=== PATIENT | female | born 1995 | race American Indian/Alaskan Native ===

== ENCOUNTER 2018-06-30 10:42 | Emergency (ER) | payer MEDICAID ==
[2018-06-30 12:34] VITALS: BP 115/63
--- NOTE | 2018-06-30 13:51 | Emergency Department Report ---
Eye Injury/Foreign Body - HPI Duration: 2 Days Eye Location: Bilateral Severity: None Tetanus Status: Up to Date Eye Symptoms: Eye Pain: Yes (bilateral eye burning and watery), Blurred Vision: No, Eye Redness: Yes, Grinding/Hammering Metal: No, Used Eye Protection: No, Contact Lens Use: No (patient says she has not worn her contacts for about a week due to environmental allergies), Recalls Injury: No, Photophobia: No Other History: This is 33-year-old female patient here report that she has burning sensation in her eyes and denies any injury or any foreign body sensation since that she has allergies and this did happen once before and it went away. She does have transmission repairer that she will still. Denies any loss of vision. Denies any medical problem. He reports burning at 11/01 ED Review of Systems ROS: Stated complaint: BOTH EYES BURNING Other details as noted in HPI Constitutional: denies: chills, fever Eyes: denies: eye pain, eye discharge, vision change ENT: congestion. denies: ear pain, throat pain Respiratory: denies: cough, shortness of breath, SOB with exertion, SOB at rest , wheezing Cardiovascular: denies: chest pain, palpitations Gastrointestinal: denies: nausea, vomiting Genitourinary: denies: urgency, dysuria, discharge Musculoskeletal: denies: back pain, joint swelling, arthralgia Skin: denies: rash, lesions Neurological: denies: headache, weakness, numbness, paresthesias, abnormal gait ED Past Medical Hx - Past Medical History Previous Medical History?: No - Surgical History Past Surgical History?: No - Family History Family history: hypertension - Social History Smoking Status: Never Smoker Substance Use Type: None - Medications Home Medications: Home Medications Medication Instructions Recorded Confirmed Last Taken Type metroNIDAZOLE 0.75% [Vandazole 1 applicator VG QHS #1 tube 10/04/15 Unknown Rx 0.75% VAGINAL] Gentamicin 0.3% Ophth Soln 2 drops OU Q8H 7 Days #1 bottle 06/30/18 Unknown Rx Ketotifen Fumarate [Zaditor] 5 ml OP Q8H PRN #2 drops 06/30/18 Unknown Rx Eye Injury Exam - Exam General: Vital signs noted. No distress. Alert and acting appropriately. This is a 23-year-old female well-nourished well-developed in no acute distress. - Visual Acuity Left Vision Acuity Degree: 20/25 Eye Exam: Both EOMI, Neither Injection, Neither Chemosis, Neither Abnormal Pupil , Neither Eye Foreign Body, Neither Lid Foreign Body, Neither Mucous Discharge, Neither Purulent Discharge, Neither Corneal Edema, Neither Photophobia Right Vision Acuity Degree: 20/25 Eye Exam: Both EOMI, Neither Injection, Neither Chemosis, Neither Abnormal Pupil , Neither Eye Foreign Body, Neither Lid Foreign Body, Neither Mucous Discharge, Neither Purulent Discharge, Neither Fluorescein Uptake, Neither Fluorescein Uptake (slit lamp), Neither Cell/Flare (slit lamp), Neither Corneal Edema, Neither Photophobia Bilateral Vision Acuity Degree: 20/25 Eye Exam: Both EOMI, Neither Injection, Neither Chemosis, Neither Abnormal Pupil , Neither Eye Foreign Body, Neither Lid Foreign Body, Neither Mucous Discharge, Neither Purulent Discharge, Neither Fluorescein Uptake, Neither Fluorescein Uptake (slit lamp), Neither Cell/Flare (slit lamp), Neither Corneal Edema, Neither Photophobia Exam: Minimal erythema to both eyes with watering. ED Course Vital Signs 06/30/18 12:30 Temperature 99.0 F Pulse Rate 87 Respiratory 20 Rate Blood Pressure 115/63 O2 Sat by Pulse 98 Oximetry - Reevaluation(s) Reevaluation #1: 06/30/18 14:47 Patient stable throughout ED stay ED Medical Decision Making - Medical Decision Making This is a 23-year-old female well-nourished well-developed complaining of eye burning and watery from allergies. Assessment/plan Conjunctivitis-both eyes suspect allergic-will discharge home on gentamycin , Zaditor I discussed the patient diagnosis and she does have a transmission repairer I told her to call tomorrow to schedule an appointment for follow-up visits. She is stable and in no acute distress and discharged home with prescription for gentamicin eyedrops and Zaditor eyedrops. Critical care attestation.: If time is entered above; I have spent that time in minutes in the direct care of this critically ill patient, excluding procedure time. ED Disposition Clinical Impression: Conjunctivitis Qualifiers: Conjunctivitis type: unspecified Laterality: bilateral Qualified Code(s): H10.9 - Unspecified conjunctivitis Disposition: TO HOME OR SELFCARE Is pt being admited?: No Does the pt Need Aspirin: No Condition: Stable Instructions: Conjunctivitis (ED) Additional Instructions: Please follow up with ophthalmology as instructed. Use eyedrops as instructed Prescriptions: Gentamicin 0.3% Ophth Soln 2 drops OU Q8H 7 Days #1 bottle Ketotifen Fumarate [Zaditor] 5 ml OP Q8H PRN #2 drops PRN Reason: eye pain Referrals: SCOTT EVANS MD [Staff Physician] - 06/30/18 Forms: Work/School Release Form(ED)
== END 2018-06-30 15:00 | disposition home or self-care (01) ==
LOC: ED 10:42
DX: H10.9 Unspecified conjunctivitis (principal)
CPT/HCPCS: 99283